=== PATIENT | female | born 1965 | race Caucasian/White ===

== ENCOUNTER 2021-01-18 08:28 | Outpatient (RCR) | payer OTHER, SELFPAY | END 2021-02-22 23:59 | LOC: IMMUN 08:28 | PROVIDERS: Visit Provider Family Medicine | DX: Z23 Encounter for immunization (principal) | CPT/HCPCS: 0001A; 0002A; 91300 ==

== ENCOUNTER → 2022-06-26 | Outpatient (CLI) | payer OTHER, SELFPAY ==
[2022-06-28 20:07] LABS: QNTFERON TB Mitogen Value > 10.00 IU/mL (.); QNTFERON TB Nil Value 0.22 IU/mL (.); QNTFERON TB1+ Ag Value 0.02 IU/mL (.); QNTFERON TB2+ Ag Value 0.02 IU/mL (.)
[2022-06-29 15:48] LABS: QNTIFERON TB Positive Criteria Negative (Negative)
== END | disposition home or self-care (01) ==
PROVIDERS: PCP Family Medicine; Referring Provider Dermatology; Visit Provider Dermatology
DX: L40.0 Psoriasis vulgaris (principal); Z79.899 Other long term (current) drug therapy
CPT/HCPCS: 36415; 86480

== ENCOUNTER 2023-12-24 08:40 | Inpatient (IN) | payer OTHER, SELFPAY ==
[2023-12-24] VITALS (13 sets, daily range): BP systolic 121–150; BP diastolic 55–73; PULSE 95–108; RESP 12–26; TEMP 36.3–37.5; O2SAT 94–100; BMI 26.9; BMI 27.5
--- NOTE | 2023-12-24 09:08 | EDS_ITS ---
HPI History of Present Illness Chief Complaint: Cold Sx Informant: patient Onset/Context/Timing Onset: Days (4) Context: Sudden Onset Timing: Continuous Quality: Fatigue, short of breath Location: Generalized Worsened by: Exertion Relieved by: Rest Narrative Narrative: Patient presents with shortness of breath and fatigue that has been getting worse over the past 4 days. Patient states that she started having some cold symptoms 6 days ago but starting having some shortness of breath with exertion 4 days ago. Patient states she feels fatigued. Patient states her breathing is worse with any exertion. Patient states she can only walk approximately 10 feet before she gets out of breath and has to stop and rest. Patient admits to decreased appetite. Patient mitts to some nausea and vomiting. Patient admits to a low-grade fever of 100.3 at home. [facility] Medical History Diabetes Psoriasis Home Medications blood sugar diagnostic (FreeStyle Lite Strips) 12/24/23 [History Last Taken Unknown] deucravacitinib 6 mg tablet (Sotyktu) 6 mg PO DAILY 12/24/23 [History Last Taken 12/18/23] empagliflozin 25 mg tablet (Jardiance) 25 mg PO DAILY 12/24/23 [History Last Taken 12/23/23] metformin 500 mg tablet 1,000 mg PO BID 12/24/23 [History Last Taken 12/23/23] Allergy/AdvReac Type Severity Reaction Status Date / Time Penicillins Allergy PT UNSURE Verified 12/24/23 08:43 OF REACTION Surgical History no surgical history Social History Smoking Status: Never smoker ROS ROS ED Constitutional Constitutional ED: Reports fever(s); Denies chills Eyes Eyes: Denies blurry vision or change in vision ENT ENT ED: Denies rhinorrhea or sore throat Cardiovascular Cardiovascular: Reports chest pain; Denies palpitations Respiratory/Chest Respiratory/Chest: Reports dyspnea and dyspnea on exertion; Denies cough Gastrointestinal Gastrointestinal: Reports nausea and vomiting Genitourinary Genitourinary ED: Denies dysuria or hematuria Musculoskeletal Musculoskeletal: Denies back pain or neck pain Integumentary Denies abscess or rash Neurologic Neurologic: Reports headache(s); Denies weakness Allergic/Immunologic Allergic/Immunologic ED: Denies mouth swelling or urticaria EXAM Physical Exam Const Vital Signs: 12/24/23 08:41 12/24/23 08:52 12/24/23 08:52 Temperature 97.4 F L Temperature Source Temporal Pulse Rate 103 H Respiratory Rate 20 H Respiratory Effort Short of Breath Labored Short of Breath Labored Respiratory Depth Deep Respiratory Pattern Tachypnea Tachypnea Blood Pressure 150/68 H Blood Pressure Mean 95 Pulse Ox 100 Oxygen Delivery Method Room Air Room Air 12/24/23 09:26 12/24/23 10:41 12/24/23 12:00 Temperature Temperature Source Pulse Rate 99 99 Respiratory Rate 26 H 25 H Respiratory Effort Respiratory Depth Respiratory Pattern Blood Pressure 147/55 H 123/73 H Blood Pressure Mean 85 89 Pulse Ox 98 98 99 Oxygen Delivery Method Room Air Room Air Room Air Positive well nourished and well developed General Appearance ED: well developed and NAD HEENT Reports moist mucous membranes Neck supple and no JVD Resp normal respiratory effort and clear to auscultation bilaterally Cardio regular rhythm Rate: tachycardic GI non-tender and non-distended Palpation: soft Extremity normal to inspection General Extremety ED: Negative for edema or tenderness General Extremity: Negative for edema Neuro oriented x3, CN's II-XII intact bilaterally and no sensory deficits noted Sensorium / Orientation: alert Motor Exam: strength 5/5 throughout MDM MDM MDM Narrative Medical decision making narrative: Differential diagnosis includes congestive heart failure, cardiac dysrhythmia, cardiac ischemia, pulmonary embolism, viral illness, DKA, and electrolyte abnormality. EKG will be obtained to assess for cardiac dysrhythmia and cardiac ischemia. Chest x-ray will be obtained to assess for pneumonia and congestive heart failure. CBC will be obtained to assess for leukocytosis and anemia. Bas ic metabolic profile will be obtained to assess for electrolyte abnormality and renal function. D-dimer will be obtained to assess for pulmonary embolism. High-sensitivity troponin will be obtained to assess for cardiac ischemia. COVID-19, influenza, and RSV PCR will be obtained to assess for viral illness. Lab Data Attestation: I reviewed the patient's lab results. Lab results narrative: CBC was reviewed. There is a leukocytosis of 16.4. Hemoglobin was slightly elevated at 16.5 and hematocrit was 48.4. Platelets were normal. PT with INR and PTT were reviewed. Pro time was 15.2 and INR is 1.2. PTT was 26.3. D- dimer was reviewed and was elevated at 1.62. Basic metabolic profile was r eviewed. Sodium was low at 123. Glucose was elevated at 263. BUN was slightly elevated at 31 and creatinine was 1.08. Anion gap was elevated at 19 and CO2 was low at 5.0. Serum lactate was reviewed and was normal at 1.8. High- sensitivity troponin was reviewed and was normal at 4. BNP was reviewed and was normal at 49. Urinalysis was reviewed. Urine ketones were 150. Urine glucose was 1000. Occult blood was 150. There are 0-5 red blood cells and 0-5 white blood cells noted. Serum acetone level was reviewed and was moderate. COVID-19 PCR was reviewed and was negative. Influenza PCR was reviewed and was negative for influenza A and influenza B. RSV PCR was reviewed and was negative. Labs: Laboratory Results - last 24 hr 12/24/23 12/24/23 12/24/23 09:45 10:35 11:24 WBC 16.4 H RBC 5.12 Hgb 16.5 H Hct 48.4 H MCV 94.5 MCH 32.2 H MCHC 34.1 RDW Std Deviation 44.2 H RDW Coeff of Amie 12.5 Plt Count 296 MPV 10.2 Immature Gran % (Auto) 1.500 H Neut % (Auto) 80.7 H Lymph % (Auto) 12.5 L [place] % (Auto) 4.9 Eos % (Auto) 0.1 Baso % (Auto) 0.3 Absolute Neuts (auto) 13.2 H Absolute Lymphs (auto) 2.05 Nucleated RBC % 0 PT 15.2 H INR 1.2 APTT 26.3 D-Dimer Quant (PE/DVT) 1.62 H* Sodium 123 L Potassium 5.0 Chloride 99 Carbon Dioxide 5.0 L* Anion Gap 19 H BUN 31 H Creatinine 1.08 H Estim Creat Clear Calc 50.86 Est GFR (MDRD) Af Amer 67 Est GFR (MDRD) Non-Af 55 L BUN/Creatinine Ratio 28.7 H Glucose 263 H Lactic Acid 1.8 Calcium 8.8 Troponin I High Sens 4 B-Natriuretic Peptide 49.0 Urine Color Yellow Urine Clarity Sl. Cloudy Urine pH 5.0 Ur Specific [place] 1.020 Urine Protein 100 H Urine Glucose (UA) 1000 H Urine Ketones 150 A* Urine Occult Blood 150 H Urine Nitrite Negative Urine Bilirubin Negative Urine Urobilinogen Normal Ur Leukocyte Esterase Negative Urine RBC 0-5 SEEN Urine WBC 0-5 SEEN Ur Squamous Epith Cells 0-5 SEEN Urine Bacteria 1+ Urine Mucus 0 SEEN Acetone Level MODERATE H ABG Data ABG results: ABG 12/24/23 11:43 Specimen Type RUDY Sample Site Not entered O2 % 21.0 VBG pH 6.94 L* VBG pO2 52 H VBG Total CO2 < 5 L VBG O2 Sat (Calc) 65 VBG Base Excess -29 L POC Mix VBG pCO2 Pt Tmp 16.2 L* O2 Delivery Device Not entered Crit Call To/Read Back Yes Radiography Chest X-Ray - ED: 2 View, Read by ED Physician, Read by Radiologist and No Acute Disease Diagnostic Testing: Clinical Impression(s) from Imaging Studies Chest X-Ray 12/24/23 09:34 IMPRESSION: No acute abnormality is seen. Electronically Signed: Delfin Mathew MD at 9:45 EDT , PA and lateral chest x-ray was obtained. There are 2 views. On my independent interpretation, lung david are clear. There is normal cardiac silhouette. Bony thorax is normal. There is no acute process noted. Radiologist also interpreted the x-ray and agrees. Because of the elevated D-dimer, CTA of the chest was obtained. There are nonocclusive filling defects in the branches of the right and left lower lobes. This was interpreted by the radiologist was also independently reviewed by myself. EKG Initial EKG: Attestation: I personally reviewed and interpreted this EKG as follows: Interpretation: Sinus Rhythm (100) and No Acute Injury Pattern Comments: EKG was obtained. On my independent interpretation, it showed a normal sinus rhythm with a rate of 100. WI interval, QRS interval, and QTc intervals were all normal. [place] was normal. There are no acute ST or T wave ch anges. Prior EKG tracings: not available for review Prior: No Prior Additional Tests and Interventions Additional Tests or Interventions: Because of the low CO2 and elevated anion gap, serum acetone was added on. Because of the elevated D-dimer, CTA of the chest was obtained. Treatment and Re-Evaluation :: Patient was given IV fluids. Patient was started on insulin drip. Patient was given a dose of sodium bicarbonate. Patient was also started on Eliquis. Case was discussed with the hospitalist. He will admit the patient to his service. Patient understood and was agreeable with the plan. All questions were answered. Critical Care Time Critical Care Time: Yes Critical care time (excluding procedures): 30-74 minutes (37), Including time spent:, Discussing w/Patient &/or Family/Student Development Specialist, Discussing w/Consultants, Arranging Admission or Transfer and Performing Direct Patient Care at Bedside Discharge Plan Dx/Rx/DC Orders Clinical Impression: Diabetic ketoacidosis, Dyspnea on exertion, Pulmonary emboli, Acute hyponatremia Disposition Disposition: Acute Care Hospital [facility]
--- NOTE | 2023-12-24 09:25 | EKG12_ITS ---
Test Reason : SOB Blood Pressure : / mmHG Vent. Rate : 100 BPM Atrial Rate : 100 BPM P-R Int : 138 ms QRS Dur : 094 ms QT Int : 346 ms P-R-T Axes : 002 002 026 degrees QTc Int : 446 ms Normal sinus rhythm Incomplete right bundle branch block Borderline ECG Confirmed by GIRMA GLORIA, GONZÁLEZ ([id number]), editor school photograph JAMMIE SÁNCHEZ ([id number]) on 12/25/2023 11:32:08 AM Referred By: ES/ Confirmed By:GONZÁLEZ RAYO MD
--- NOTE | 2023-12-24 09:33 | ED.RN ---
NO OLD EKG
--- NOTE | 2023-12-24 09:34 | RAD_ITS ---
STUDY: X-RAY CHEST REASON FOR EXAM: Female, 58 years old. Dyspnea TECHNIQUE: PA and lateral views of the chest. COMPARISON: None. FINDINGS: EKG electrodes are seen. The lungs are clear and expanded. There is no demonstrated pleural abnormality. Normal size heart. Normal mediastinum and ruthy. Normal visualized pulmonary arteries. Normal visualized aortic arch and descending thoracic aorta. There are diffuse degenerative changes of the visualized thoracic spine. Normal visualized ribs, clavicles, and shoulders. There is no demonstrated abnormality of the visualized soft tissue structures of the upper abdomen. RAD/Chest PA and Lateral IMPRESSION: No acute abnormality is seen. Electronically Signed: Delfin Mathew MD at 9:45 EDT ,
[2023-12-24 10:00] LABS: Absolute Lymphocyte Count 2.05 X10^3/uL (0.83-4.51); Absolute Neutrophil Count 13.2 X10^3/uL (2.0-7.7); Basophil# 0.05 X10^3/uL; Basophil% 0.3 % (0-1); Eosinophil# 0.02 X10^3/uL; Eosinophils% 0.1 % (0-5); Hematocrit 48.4 % (37-47); Hemoglobin 16.5 g/dL (12.0-15.0); Lymphocyte # 2.05 X10^3/ul (0.83-4.51); Lymphocyte % 12.5 % (19-41); Mean Corp Hgb Conc 34.1 g/dL (32-36); Mean Corpuscular Hgb 32.2 pg (27.0-32.0); Mean Corpuscular Volume 94.5 fL (81-99); Mean Platelet Vol. 10.2 fl (6.2-12.0); Monocyte# 0.81 X10^3/uL; Monocyte% 4.9 % (0-10); NRBC Flagged by Analyzer 0 % (0-5); Neutrophil # 13.22 X10^3/uL (2.7-7.7); Neutrophil % 80.7 % (47-70); Platelet Count 296 K/mm3 (150-450); RBC Distribution Width CV 12.5 % (11.6-14.6); RBC Distribution Width SD 44.2 fl (35.1-43.9); Red Blood Count 5.12 M/mm3 (4.2-5.4); White Blood Count 16.4 K/mm3 (4.4-11.0)
[2023-12-24 10:12] LABS: International Normalized Ratio 1.2; Partial Thromboplast Time 26.3 Seconds (24.1-36.2); Prothrombin Time (Protime)PT. 15.2 SECONDS (11.7-14.9)
[2023-12-24 10:27] LABS: D-Dimer Quantitative (DVT/PE) 1.62 FEU/ug/m (0.27-0.49)
--- NOTE | 2023-12-24 10:27 | CT_ITS ---
STUDY: CTA CHEST REASON FOR EXAM: Female, 58 years old. Elevated D-dimer RADIATION DOSAGE (If Supplied By Facility): CTDIvol = ( 8.94 ) mGy, DLP = ( 319.91 ) mGycm TECHNIQUE: The examination was performed with the intravenous administration of IV 75mL Isovue-370. Post-processing of the angiographic images was performed, with multiplanar reformation and 3D reconstruction. Individualized dose optimization techniques were used for this CT. COMPARISON: Comparison is made with prior chest radiograph done earlier in the day. FINDINGS: Nonocclusive intraluminal filling defects are seen in branches of the right lower lobe pulmonary artery in keeping with pulmonary emboli. Small intraluminal filling defects also seen in small branches of the left lower lobe pulmonary artery. Normal thoracic aorta and visualized great vessels. There is no demonstrated aortic dissection. There are calcifications of the coronary arteries. Normal mediastinum. Normal hilar regions. Normal visualized trachea and bronchi. The lungs are well expanded. Normal pulmonary parenchyma. Normal pleura. Normal chest wall structures. There are degenerative changes of thoracic spine. Fatty infiltration of the liver. Distended gallbladder. CT/CTA Chest W/WO Contrast IMPRESSION: Nonocclusive filling defects in branches of both the right and left lower lobe pulmonary artery in keeping with pulmonary emboli. Electronically Signed: Delfin Mathew MD at 11:57 EDT ,
[2023-12-24 10:35] LABS: Anion Gap 19 (5-15); BUN 31 mg/dL (7-18); BUN/Creat Ratio 28.7 RATIO (10-20); Calcium,Total 8.8 mg/dL (8.5-10.1); Chloride 99 mmol/L (98-107); Creatinine, Serum 1.08 mg/dL (0.55-1.02); EST Glomerular Filtration Rate 55 mL/min (>60); Est Glom Filt Rate - Afr Amer 67 mL/min (>60); Estimated Creatinine Clearance 50.86 ml/min; Glucose 263 mg/dL (74-106); Sodium Level 123 mmol/L (136-145); Troponin-I HS 4 pg/mL (3.0-54.0)
[2023-12-24 10:41] LABS: Mucous, Urine 0 SEEN /hpf (<or=2+)
[2023-12-24 10:42] LABS: Color, Urine Yellow (Yellow); Glucose, Dipstick 1000 mg/dl (Normal); Leukocyte Esterase-Dipstick Negative /ul (Negative); Nitrite-Dipstick Negative (Negative); Occult Blood-Urine 150 /ul (Negative); Protein-Dipstick 100 mg/dl (Negative); Urine Bilirubin Dipstick Negative (Negative); Urine Clarity Sl. Cloudy (Clear); Urine Urobilinogen Normal (Normal)
[2023-12-24 10:43] LABS: Ketone-Dipstick 150 mg/dl (Negative)
[2023-12-24 10:55] LABS: Bacteria 1+ /hpf (None Seen); Red Blood Cells-Urine 0-5 SEEN /hpf (0-5); Squamous Epithelial Cells - UA 0-5 SEEN /hpf (5-10); White Blood Cells 0-5 SEEN /hpf (0-5)
[2023-12-24 10:58] LABS: Lactic Acid 1.8 mmol/L (0.4-1.9)
--- NOTE | 2023-12-24 11:43 | CPS ---
Critical values verified times two. Hand delivered results to DR. Perez. Verified by read back.
[2023-12-24 11:47] LABS: Blood Gas Specimen Type VEN; O2 Delivery Device Not entered; SITE Not entered; VBG BASE EXCESS -29 mmol/L (-1.0-3.5); VBG PO2 52 mmHg (25-40); VBG SO2 65 % (50-70); VBG TCO2 < 5 mmol/L (23-33); VBG pCO2 16.2 mmHg (41-51); VBG pH 6.94 (7.32-7.42)
--- NOTE | 2023-12-24 12:29 | PCM.HP.STD ---
HPI - General General Date of Admission: 12/24/23 Date of Service: 12/24/23 Chief Complaint: Shortness of breath HPI Narrative JOCELIN CONNER, is a 58 F with past medical history significant for mellitus type II, psoriasis who presented with shortness of breath. Patient symptoms started 4 days prior to her admission. Patient has noticed increasing dyspnea with minimal exertion. She also did experience profound weakness and was barely able to ambulate. She did experience nausea and persistent vomiting over the past 4 days. In view of worsening symptoms patient presented to the emergency department patient was found to be in DKA. Was also found to have severe acidosis did receive bicarb in the ED. CTA demonstrated bilateral pulmonary embolism patient started on apixaban and admitted to the intensive care unit for further management [facility] Medical History Diabetes Psoriasis Home Medications blood sugar diagnostic (FreeStyle Lite Strips) 12/24/23 [History Last Taken Unknown] deucravacitinib 6 mg tablet (Sotyktu) 6 mg PO DAILY 12/24/23 [History Last Taken 12/18/23] empagliflozin 25 mg tablet (Jardiance) 25 mg PO DAILY 12/24/23 [History Last Taken 12/23/23] metformin 500 mg tablet 1,000 mg PO BID 12/24/23 [History Last Taken 12/23/23] Allergy/AdvReac Type Severity Reaction Status Date / Time Penicillins Allergy PT UNSURE Verified 12/24/23 08:43 OF REACTION Surgical History no surgical history Social History Smoking Status: Never smoker ROS ROS Narrative GENERAL: Fatigue, anorexia HEENT: denies headache, sinus congestion, or drainage, dysphagia RESPIRATORY: shortness of breath, dyspnea on exertion CARDIAC: denies chest pain, palpitations, orthopnea, PND GASTROINTESTINAL: d, nausea, vomiting, GENITOURINARY: denies dysuria, urgency, frequency, EXTREMITY: denies swelling MUSCULOSKELETAL: denies current joint pain or tenderness NEUROLOGIC: denies focal numbness, weakness, tingling HEMATOLOGIC: denies easy bruising and/or hemorrhage INTEGUMENT: denies rashes PSYCHIATRIC: denies suicidal or homicidal ideation Vital Signs Vital Signs Vital Signs: 12/24/23 08:41 12/24/23 08:52 12/24/23 08:52 Temperature 97.4 F L Temperature Source Temporal Pulse Rate 103 H Respiratory Rate 20 H Respiratory Effort Short of Breath Labored Short of Breath Labored Respiratory Depth Deep Respiratory Pattern Tachypnea Tachypnea Blood Pressure 150/68 H Blood Pressure Mean 95 Pulse Ox 100 Oxygen Delivery Method Room Air Room Air 12/24/23 09:26 12/24/23 10:41 Temperature Temperature Source Pulse Rate 99 Respiratory Rate 26 H Respiratory Effort Respiratory Depth Respiratory Pattern Blood Pressure 147/55 H Blood Pressure Mean 85 Pulse Ox 98 98 Oxygen Delivery Method Room Air Room Air Weight Weight: 66.7 kg Body Mass Index (BMI) 26.9 Physical Exam Narrative GENERAL: cooperative but frail looking HEENT: Atraumatic; normocephalic EYES; Anicteric, Normal Conjunctiva NECK; supple, normal thyroid, RESPIRATORY: Diminished to auscultation CARDIOVASCULAR: Regular S1 S2, GI: soft, normoactive bowel sounds, : No Renal angle tenderness; EXTREMITIES: No edema, no clubbing, MUSCULOSKELETAL: no muscle wasting NEURO: Awake; no lateralizing signs. SKIN: No Rash PSYCH; Flat affect Results Lab / Micro Data 12/24/23 09:45 12/24/23 14:45 Labs: Laboratory Results - last 24 hr 12/24/23 09:45: WBC 16.4 H, RBC 5.12, Hgb 16.5 H, Hct 48.4 H, MCV 94.5, MCH 32.2 H, MCHC 34.1, RDW Std Deviation 44.2 H, RDW Coeff of Amie 12.5, Plt Count 296, MPV 10.2, Immature Gran % (Auto) 1.500 H, Neut % (Auto) 80.7 H, Lymph % (Auto) 12.5 L, [place] % (Auto) 4.9, Eos % (Auto) 0.1, Baso % (Auto) 0.3, Absolute Neuts (auto) 13.2 H, Absolute Lymphs (auto) 2.05, Nucleated RBC % 0, PT 15.2 H, INR 1.2, APTT 26.3, D-Dimer Quant (PE/DVT) 1.62 H*, Sodium 123 L, Potassium 5.0, Chloride 99, Carbon Dioxide 5.0 L*, Anion Gap 19 H, BUN 31 H, Creatinine 1.08 H, Estim Creat Clear Calc 50.86, Est GFR (MDRD) Af Amer 67, Est GFR (MDRD) Non-Af 55 L, BUN/Creatinine Ratio 28.7 H, Glucose 263 H, Lactic Acid 1.8, Calcium 8.8, Troponin I High Sens 4, B-Natriuretic Peptide 49.0 12/24/23 10:35: Urine Color Yellow, Urine Clarity Sl. Cloudy, Urine pH 5.0, Ur Specific [place] 1.020, Urine Protein 100 H, Urine Glucose (UA) 1000 H, Urine Ketones 150 A*, Urine Occult Blood 150 H, Urine Nitrite Negative, Urine Bilirubin Negative, Urine Urobilinogen Normal, Ur Leukocyte Esterase Negative, Urine RBC 0-5 SEEN, Urine WBC 0-5 SEEN, Ur Squamous Epith Cells 0-5 SEEN, Urine Bacteria 1+, Urine Mucus 0 SEEN 12/24/23 11:24: Acetone Level MODERATE H Micro: Microbiology 12/24/23 09:45 Mucosa - Nose SARS-CoV-2, Influenza & RSV (PCR) - Final ABG Data ABG results: ABG 12/24/23 11:43 Specimen Type RUDY Sample Site Not entered O2 % 21.0 VBG pH 6.94 L* VBG pO2 52 H VBG Total CO2 < 5 L VBG O2 Sat (Calc) 65 VBG Base Excess -29 L POC Mix VBG pCO2 Pt Tmp 16.2 L* O2 Delivery Device Not entered Crit Call To/Read Back Yes Imaging Radiology Impression Chest X-Ray 12/24/23 09:34 IMPRESSION: No acute abnormality is seen. Electronically Signed: Delfin Mathew MD at 9:45 EDT , Assessment & Plan Assessment/Plan (1) Acute hyponatremia: (2) Pulmonary emboli: QUALIFIERS: Pulmonary embolism type: multiple subsegmental (without acute cor pulmonale) Qualified Code(s): I26.94 - Multiple subsegmental pulmonary emboli without acute cor pulmonale (3) Diabetic ketoacidosis: QUALIFIERS: Diabetes mellitus complication detail: without coma Diabetes mellitus type: type 2 Qualified Code(s): E11.10 - Type 2 diabetes mellitus with ketoacidosis without coma PLAN: Plan Patient is a 58-year-old lady presented with progressive shortness of breath diagnosed with diabetic ketoacidosis as well as bilateral pulmonary embolism admitted to the intensive care unit for further management 1. Diabetic ketoacidosis ? Admitted to the intensive care unit management initiated with IV fluid resuscitation, IV insulin, BMP every 4 monitoring of electrolyte and correction of electrolyte abnormalities 2. Severe acidosis ? Secondary to DKA patient did receive bicarb in the emergency department. Do expect correction with treatment of her underlying DKA 3. Severe hyponatremia ? Secondary to DKA sodium levels being monitored with every 4 BMP 5. Mild hyperkalemia ? Secondary to DKA do expect improvement with treatment of the DKA 5. Acute bilateral pulmonary embolism ? Unprovoked patient was started on apixaban from the emergency department did continue. Echo ordered for RV function assessment. 6. Leukocytosis ? Most likely reactive no evidence of active infection for now 7. Psoriasis ? Patient remains on remission. Patient is on deucravacitinib Critical time spent in the patient's overall evaluation,decision-making process, review of diagnostic data, adjustment of management, discussion with other providers, nursing nursing and ancillary staff involved in patient's care documentation, 80 Minutes Advance planning; did discuss with the patient and family regarding advanced directives as well as CODE STATUS. Did explain the various scenarios involved ( FULL CODE, DNR CCA, DNR CCA with no intubation, and DNR CC and what each meant) patient elected to remain full code with CPR. Order was placed. Time spent on discussion 18 minutes. Charges/Coding Procedures Hospitalists Procedures: 27597 Advncd Care Plan 30 Min Multi Select Codes Hospitalists' Procedures Procedures: 94370 Critical Care 1st Hr and [address]38 Critical Care Addl 30 Min
[2023-12-24] MEDS: Sodium Bicarbonate 8.4% 50 ML Syringe 50 MEQ IV (12:35)
[2023-12-24] MEDS: Insulin Lispro 100 UNIT in 0.9% Normal Saline (100mL Bag) 99 ML 6.7 UNIT CONT INF (12:40)
[2023-12-24] MEDS: 0.9% Normal Saline (1000mL) 1,000 ML 1000 ML IV (12:50)
[2023-12-24] MEDS: APIXABAN 5 MG TABLET 10 MG PO ×2 (12:50→21:15)
[2023-12-24 13:01] LABS: Bedside Glucose 228 mg/dL (74-106)
--- NOTE | 2023-12-24 13:44 | NURSING ---
12/24/23@ 1340- REPORT CALLED TO COURTNEY CID.
[2023-12-24 13:56] LABS: Bedside Glucose 168 mg/dL (74-106)
[2023-12-24] MEDS: 0.9% Normal Saline (1000mL) 1,000 ML 999 ML IV (14:55)
[2023-12-24 15:04] LABS: Bedside Glucose 101 mg/dL (74-106)
[2023-12-24 15:12] LABS: Anion Gap 18 (5-15); BUN 27 mg/dL (7-18); BUN/Creat Ratio 32.7 RATIO (10-20); Chloride 109 mmol/L (98-107); Creatinine, Serum 0.83 mg/dL (0.55-1.02); EST Glomerular Filtration Rate 75 mL/min (>60); Est Glom Filt Rate - Afr Amer 91 mL/min (>60); Estimated Creatinine Clearance 66.89 ml/min; Glucose 106 mg/dL (74-106); Potassium 3.2 mmol/L (3.5-5.1); Sodium Level 132 mmol/L (136-145)
[2023-12-24] MEDS: Dext 5%-0.45% NS 1,000 ML 150 ML IV (15:14)
[2023-12-24] MEDS: 0.9% Normal Saline (1000mL) 1,000 ML 500 ML IV (16:22)
[2023-12-24 17:01] LABS: Bedside Glucose 94 mg/dL (74-106)
[2023-12-24] MEDS: Sodium Bicarbonate 50 MEQ in Dextrose 5%-Water (1000mL Bag) 1,000 ML 100 MEQ IV (17:02)
[2023-12-24 17:04] LABS: Bedside Glucose 90 mg/dL (74-106)
[2023-12-24 18:00] LABS: Bedside Glucose 92 mg/dL (74-106)
[2023-12-24 18:28] LABS: VBG Bicarbonate 4 mmol/L (22-26)
[2023-12-24 19:38] LABS: Bedside Glucose 96 mg/dL (74-106)
[2023-12-24 20:07] LABS: Anion Gap 11 (5-15); BUN 22 mg/dL (7-18); BUN/Creat Ratio 33.1 RATIO (10-20); Calcium,Total 7.7 mg/dL (8.5-10.1); Chloride 112 mmol/L (98-107); Creatinine, Serum 0.66 mg/dL (0.55-1.02); EST Glomerular Filtration Rate 97 mL/min (>60); Est Glom Filt Rate - Afr Amer 117 mL/min (>60); Estimated Creatinine Clearance 84.12 ml/min; Glucose 116 mg/dL (74-106); Sodium Level 133 mmol/L (136-145)
[2023-12-24 20:36] LABS: Bedside Glucose 105 mg/dL (74-106)
[2023-12-24] MEDS: Acetaminophen 325 MG Tablet 650 MG PO (21:17)
[2023-12-24] MEDS: BENZOCAINE/MENTHOL 1 LOZENGE 2 LOZENGE MUCOUS MEM (22:22)
[2023-12-24] MEDS: KCL 20MEQ in D5.45NS 20 MEQ/1,000 ML IV.SOLN. 150 MEQ IV (22:22)
[2023-12-24 22:37] LABS: Bedside Glucose 114 mg/dL (74-106)
[2023-12-24 23:44] LABS: Anion Gap 10 (5-15); BUN 18 mg/dL (7-18); BUN/Creat Ratio 26.8 RATIO (10-20); Calcium,Total 7.7 mg/dL (8.5-10.1); Chloride 112 mmol/L (98-107); Creatinine, Serum 0.67 mg/dL (0.55-1.02); EST Glomerular Filtration Rate 95 mL/min (>60); Est Glom Filt Rate - Afr Amer 116 mL/min (>60); Estimated Creatinine Clearance 82.86 ml/min; Glucose 107 mg/dL (74-106); Potassium 2.6 mmol/L (3.5-5.1); Sodium Level 134 mmol/L (136-145)
[2023-12-25] VITALS (15 sets, daily range): BP systolic 104–143; BP diastolic 56–83; PULSE 85–105; RESP 16–29; TEMP 36.6–37.1; O2SAT 94–100; BMI 27.4
[2023-12-25] MEDS: Potassium Chloride 10mEq/100mL 10 MEQ/100 ML IV.SOLN. 100 MEQ IV BOLUS ×8 (00:36→13:24)
[2023-12-25 00:37] LABS: Bedside Glucose 112 mg/dL (74-106)
[2023-12-25 00:37] LABS: Bedside Glucose 105 mg/dL (74-106)
[2023-12-25 01:31] LABS: Bedside Glucose 104 mg/dL (74-106)
[2023-12-25] MEDS: Sodium Bicarbonate 50 MEQ in Dextrose 5%-Water (1000mL Bag) 1,000 ML 100 MEQ IV (03:18)
[2023-12-25 03:42] LABS: Absolute Lymphocyte Count 1.34 X10^3/uL (0.83-4.51); Absolute Neutrophil Count 4.3 X10^3/uL (2.0-7.7); Basophil# 0.01 X10^3/uL; Basophil% 0.2 % (0-1); Hematocrit 34.2 % (37-47); Hemoglobin 12.2 g/dL (12.0-15.0); Lymphocyte # 1.34 X10^3/ul (0.83-4.51); Lymphocyte % 22.1 % (19-41); Mean Corp Hgb Conc 35.7 g/dL (32-36); Mean Corpuscular Hgb 31.6 pg (27.0-32.0); Mean Corpuscular Volume 88.6 fL (81-99); Mean Platelet Vol. 9.5 fl (6.2-12.0); Monocyte# 0.43 X10^3/uL; Monocyte% 7.1 % (0-10); NRBC Flagged by Analyzer 0 % (0-5); Neutrophil # 4.27 X10^3/uL (2.7-7.7); Neutrophil % 70.4 % (47-70); Platelet Count 159 K/mm3 (150-450); RBC Distribution Width CV 12.4 % (11.6-14.6); Red Blood Count 3.86 M/mm3 (4.2-5.4); White Blood Count 6.1 K/mm3 (4.4-11.0)
[2023-12-25 04:02] LABS: ALB/GLOB Ratio 0.8 RATIO (0.9-2.4); AST(SGOT) 14 U/L (15-37); Alanine Aminotransfer ALT/SGPT 12 U/L (13-56); Albumin, Serum 2.7 g/dL (3.2-5.0); Alkaline Phosphatase 65 U/L (45-117); Anion Gap 7 (5-15); BUN 14 mg/dL (7-18); BUN/Creat Ratio 23.3 RATIO (10-20); Chloride 114 mmol/L (98-107); EST Glomerular Filtration Rate 109 mL/min (>60); Est Glom Filt Rate - Afr Amer 131 mL/min (>60); Estimated Creatinine Clearance 92.53 ml/min; Globulin 3.2 g/dL (2.2-4.2); Glucose 102 mg/dL (74-106); Potassium 2.8 mmol/L (3.5-5.1); Protein, Total 5.9 g/dL (6.4-8.2); Sodium Level 135 mmol/L (136-145)
[2023-12-25 04:32] LABS: Bedside Glucose 101 mg/dL (74-106)
[2023-12-25 04:32] LABS: Bedside Glucose 107 mg/dL (74-106)
[2023-12-25 04:32] LABS: Bedside Glucose 113 mg/dL (74-106)
[2023-12-25 04:32] LABS: Bedside Glucose 101 mg/dL (74-106)
[2023-12-25] MEDS: KCL 20MEQ in D5.45NS 20 MEQ/1,000 ML IV.SOLN. 150 MEQ IV ×2 (05:03→13:24)
[2023-12-25 06:31] LABS: Bedside Glucose 88 mg/dL (74-106)
[2023-12-25 06:33] LABS: Bedside Glucose 71 mg/dL (74-106)
[2023-12-25 07:34] LABS: Anion Gap 13 (5-15); BUN 11 mg/dL (7-18); BUN/Creat Ratio 21.7 RATIO (10-20); Calcium,Total 8.2 mg/dL (8.5-10.1); Chloride 110 mmol/L (98-107); Creatinine, Serum 0.51 mg/dL (0.55-1.02); EST Glomerular Filtration Rate 132 mL/min (>60); Est Glom Filt Rate - Afr Amer 160 mL/min (>60); Estimated Creatinine Clearance 108.75 ml/min; Glucose 117 mg/dL (74-106); Potassium 2.8 mmol/L (3.5-5.1); Sodium Level 138 mmol/L (136-145)
[2023-12-25 07:45] LABS: Bedside Glucose 105 mg/dL (74-106)
[2023-12-25] MEDS: APIXABAN 5 MG TABLET 10 MG PO ×2 (08:06→21:25)
[2023-12-25 08:25] LABS: Bedside Glucose 97 mg/dL (74-106)
--- NOTE | 2023-12-25 08:39 | PN.HOSP_ITS ---
Reason for Visit Reason for Visit: Diagnoses Type 2 diabetes mellitus with ketoacidosis without coma (12/24/23) Hypo-osmolality and hyponatremia (12/24/23) Multiple subsegmental pulmonary emboli without acute cor pulmonale (12/24/23) Subjective Subjective Patient is a 58-year-old lady admitted with exertional dyspnea found to have pulmonary embolism and was also found to be in DKA with severe acidosis admitted to the intensive care unit where patient has since been managed Objective Data Objective Data Vital Signs: Vital Signs Temp Pulse Resp BP Pulse Ox O2 Del Method 98.1 F 85 16 116/64 98 Room Air 12/25/23 08:00 12/25/23 08:00 12/25/23 08:00 12/25/23 08:00 12/25/23 08:00 12/25/23 08:19 Oxygen Delivery Method Room Air Weight: 68.084 kg Body Mass Index (BMI) 27.4 Intake & Output: Intake and Output for Last 24 Hours 12/23/23 12/24/23 12/25/23 23:59 23:59 23:59 Intake Total 3379.93 / 3429.93 3226.91 / 3226.91 Balance 3379.93 / 3429.93 3226.91 / 3226.91 Lab / Micro Data 12/25/23 03:15 12/25/23 07:15 Labs: Laboratory Results - last 24 hr 12/24/23 09:45: WBC 16.4 H, RBC 5.12, Hgb 16.5 H, Hct 48.4 H, MCV 94.5, MCH 32.2 H, MCHC 34.1, RDW Std Deviation 44.2 H, RDW Coeff of Amie 12.5, Plt Count 296, MPV 10.2, Immature Gran % (Auto) 1.500 H, Neut % (Auto) 80.7 H, Lymph % (Auto) 12.5 L, [place] % (Auto) 4.9, Eos % (Auto) 0.1, Baso % (Auto) 0.3, Absolute Neuts (auto) 13.2 H, Absolute Lymphs (auto) 2.05, Nucleated RBC % 0, PT 15.2 H, INR 1.2, APTT 26.3, D-Dimer Quant (PE/DVT) 1.62 H*, Sodium 123 L, Potassium 5.0, Chloride 99, Carbon Dioxide 5.0 L*, Anion Gap 19 H, BUN 31 H, Creatinine 1.08 H, Estim Creat Clear Calc 50.86, Est GFR (MDRD) Af Amer 67, Est GFR (MDRD) Non-Af 55 L, BUN/Creatinine Ratio 28.7 H, Glucose 263 H, Lactic Acid 1.8, Calcium 8.8, Troponin I High Sens 4, B-Natriuretic Peptide 49.0 12/24/23 10:35: Urine Color Yellow, Urine Clarity Sl. Cloudy, Urine pH 5.0, Ur Specific [place] 1.020, Urine Protein 100 H, Urine Glucose (UA) 1000 H, Urine Ketones 150 A*, Urine Occult Blood 150 H, Urine Nitrite Negative, Urine Bilirubin Negative, Urine Urobilinogen Normal, Ur Leukocyte Esterase Negative, Urine RBC 0-5 SEEN, Urine WBC 0-5 SEEN, Ur Squamous Epith Cells 0-5 SEEN, Urine Bacteria 1+, Urine Mucus 0 SEEN 12/24/23 11:24: Acetone Level MODERATE H 12/24/23 12:34: POC Glucose 228 H 12/24/23 13:30: Sodium Cancelled, Potassium Cancelled, Chloride Cancelled, Carbon Dioxide Cancelled, Anion Gap Cancelled, BUN Cancelled, Creatinine Cancelled, Estim Creat Clear Calc Cancelled, Est GFR (MDRD) Af Amer Cancelled, Est GFR (MDRD) Non-Af Cancelled, BUN/Creatinine Ratio Cancelled, Glucose Cancelled, Calcium Cancelled 12/24/23 13:34: POC Glucose 168 H 12/24/23 14:45: Sodium 132 L, Potassium 3.2 L, Chloride 109 H, Carbon Dioxide 5. 0 L*, Anion Gap 18 H, BUN 27 H, Creatinine 0.83, Estim Creat Clear Calc 66.89, Est GFR (MDRD) Af Amer 91, Est GFR (MDRD) Non-Af 75, BUN/Creatinine Ratio 32.7 H , Glucose 106, Calcium 8.0 L 12/24/23 14:46: POC Glucose 101 12/24/23 15:00: Sodium Cancelled, Potassium Cancelled, Chloride Cancelled, Carbon Dioxide Cancelled, Anion Gap Cancelled, BUN Cancelled, Creatinine Cancelled, Estim Creat Clear Calc Cancelled, Est GFR (MDRD) Af Amer Cancelled, Est GFR (MDRD) Non-Af Cancelled, BUN/Creatinine Ratio Cancelled, Glucose Cancelled, Hemoglobin A1c 7.0 H, Calcium Cancelled 12/24/23 15:37: POC Glucose 94 12/24/23 16:45: POC Glucose 90 12/24/23 17:42: POC Glucose 92 12/24/23 19:16: POC Glucose 96 12/24/23 19:30: Sodium 133 L, Potassium 3.0 L, Chloride 112 H, Carbon Dioxide 10.0 L, Anion Gap 11, BUN 22 H, Creatinine 0.66, Estim Creat Clear Calc 84.12, Est GFR (MDRD) Af Amer 117, Est GFR (MDRD) Non-Af 97, BUN/Creatinine Ratio 33.1 H, Glucose 116 H, Calcium 7.7 L 12/24/23 20:12: POC Glucose 105 12/24/23 21:11: POC Glucose 105 12/24/23 22:18: POC Glucose 114 H 12/24/23 23:10: Sodium 134 L, Potassium 2.6 L*, Chloride 112 H, Carbon Dioxide 12.0 L, Anion Gap 10, BUN 18, Creatinine 0.67, Estim Creat Clear Calc 82.86, Est GFR (MDRD) Af Amer 116, Est GFR (MDRD) Non-Af 95, BUN/Creatinine Ratio 26.8 H, Glucose 107 H, Calcium 7.7 L, POC Glucose 112 H 12/25/23 00:21: POC Glucose 113 H 12/25/23 01:13: POC Glucose 104 12/25/23 02:13: POC Glucose 107 H 12/25/23 03:15: WBC 6.1, RBC 3.86 L, Hgb 12.2, Hct 34.2 L, MCV 88.6 D, MCH 31.6, MCHC 35.7, RDW Std Deviation 40.0, RDW Coeff of Amie 12.4, Plt Count 159, MPV 9.5, Immature Gran % (Auto) 0.200, Neut % (Auto) 70.4 H, Lymph % (Auto) 22.1, [place] % (Auto) 7.1, Eos % (Auto) 0.0, Baso % (Auto) 0.2, Absolute Neuts (auto) 4.3, Absolute Lymphs (auto) 1.34, Nucleated RBC % 0, Sodium 135 L, Potassium 2.8 L, Chloride 114 H, Carbon Dioxide 14.0 L, Anion Gap 7, BUN 14, Creatinine 0.60, Estim Creat Clear Calc 92.53, Est GFR (MDRD) Af Amer 131, Est GFR (MDRD) Non-Af 109, BUN/Creatinine Ratio 23.3 H, Glucose 102, Calcium 8.0 L, Total Bilirubin 0.40, AST 14 L, ALT 12 L, Alkaline Phosphatase 65, Total Protein 5.9 L, Albumin 2.7 L, Globulin 3.2, Albumin/Globulin Ratio 0.8 L 12/25/23 03:16: POC Glucose 101 12/25/23 04:13: POC Glucose 101 12/25/23 05:20: POC Glucose 88 12/25/23 06:16: POC Glucose 71 L 12/25/23 07:13: POC Glucose 105 12/25/23 07:15: Sodium 138, Potassium 2.8 L, Chloride 110 H, Carbon Dioxide 15.0 L, Anion Gap 13, BUN 11, Creatinine 0.51 L, Estim Creat Clear Calc 108.75, Est GFR (MDRD) Af Amer 160, Est GFR (MDRD) Non-Af 132, BUN/Creatinine Ratio 21.7 H, Glucose 117 H, Calcium 8.2 L 12/25/23 08:03: POC Glucose 97 Micro: Microbiology 12/24/23 09:45 Mucosa - Nose SARS-CoV-2, Influenza & RSV (PCR) - Final ABG Data ABG results: ABG 12/24/23 11:43 Specimen Type RUDY Sample Site Not entered O2 % 21.0 VBG pH 6.94 L* VBG pO2 52 H VBG HCO3 4 L VBG Total CO2 < 5 L VBG O2 Sat (Calc) 65 VBG Base Excess -29 L POC Mix VBG pCO2 Pt Tmp 16.2 L* O2 Delivery Device Not entered Crit Call To/Read Back Yes Radiography Diagnostic Testing: Radiology Impression Chest X-Ray 12/24/23 09:34 IMPRESSION: No acute abnormality is seen. Electronically Signed: Delfin Mathew MD at 9:45 EDT , Chest CTA 12/24/23 10:27 IMPRESSION: Nonocclusive filling defects in branches of both the right and left lower lobe pulmonary artery in keeping with pulmonary emboli. Electronically Signed: Delfin Mathew MD at 11:57 EDT , Physical Exam Narrative GENERAL: cooperative but frail looking HEENT: Atraumatic; normocephalic EYES; Anicteric, Normal Conjunctiva NECK; supple, normal thyroid, RESPIRATORY: Diminished to auscultation CARDIOVASCULAR: Regular S1 S2, GI: soft, normoactive bowel sounds, : No Renal angle tenderness; EXTREMITIES: No edema, no clubbing, MUSCULOSKELETAL: no muscle wasting NEURO: Awake; no lateralizing signs. SKIN: No Rash PSYCH; Flat affect Assessment & Plan Assessment/Plan (1) Acute hyponatremia: (2) Pulmonary emboli: QUALIFIERS: Pulmonary embolism type: multiple subsegmental (without acute cor pulmonale) Qualified Code(s): I26.94 - Multiple subsegmental pulmonary emboli without acute cor pulmonale (3) Diabetic ketoacidosis: QUALIFIERS: Diabetes mellitus type: type 2 Diabetes mellitus complication detail: without coma Qualified Code(s): E11.10 - Type 2 diabetes m ellitus with ketoacidosis without coma PLAN: Plan Patient is a 58-year-old lady presented with progressive shortness of breath diagnosed with diabetic ketoacidosis as well as bilateral pulmonary embolism admitted to the intensive care unit for further management 1. Diabetic ketoacidosis ? Admitted to the intensive care unit management initiated with IV fluid resuscitation, IV insulin, BMP every 4 monitoring of electrolyte and correction of electrolyte abnormalities ? 12/25/2023 DKA resolved. Patient insulin drip discontinued placed on Accu-Cheks before meals and at bedtime as well as 1800 ADA diet 2. Severe acidosis ? Secondary to DKA patient did receive bicarb in the emergency department. Do expect correction with treatment of her underlying DKA ? 12/25/2023 corrected with treatment of her DKA as well as with bicarb drip 3. Severe hyponatremia ? Secondary to DKA sodium levels being monitored with every 4 BMP 5. Mild hyperkalemia ? Secondary to DKA do expect improvement with treatment of the DKA 5. Acute bilateral pulmonary embolism ? Unprovoked patient was started on apixaban from the emergency department did continue. Echo ordered for RV function assessment. ? 12/25/2023 CTA demonstrated Nonocclusive filling defects in branches of both the right and left lower lobe pulmonary artery in keeping with pulmonary emboli.. Patient is scheduled to undergo subsequent evaluation with a 2D echo 6. Hypokalemia ? Following correction of DKA being corrected per protocol with subsequent monitoring of electrolytes ordered 7. Leukocytosis ? Most likely reactive no evidence of active infection for now ? 12/25/2019 patient has persistent cough ordered chest x-ray as well as viral respiratory panel 8. Psoriasis ? Patient remains on remission. Patient is on deucravacitinib Time spent in the patient's overall evaluation,decision-making process, review of diagnostic data, adjustment of management, discussion with other providers, nursing nursing and ancillary staff involved in patient's care documentation, 52 Minutes Charges/Coding Visit Charges Inpatient E&M: 42305 [facility] Hosp L3
--- NOTE | 2023-12-25 09:05 | RAD_ITS ---
STUDY: X-RAY CHEST REASON FOR EXAM: Female, 58 years old. Pneumonia-486 TECHNIQUE: PA and lateral views of the chest. COMPARISON: Comparison is made with prior study dated December 24, 2023. FINDINGS: EKG electrodes are seen. Since prior study, there is increasing atelectasis and/or infiltrate at the left lung base. Mild increased markings at the right lung base. Poor inspiration. Follow-up recommended. There is no demonstrated pleural abnormality. Normal size heart. Normal mediastinum and ruthy. Normal visualized pulmonary arteries. Normal visualized aortic arch and descending thoracic aorta. There are diffuse degenerative changes of the visualized thoracic spine. Findings suggestive of a calcific tendinitis of the right shoulder. There is no demonstrated abnormality of the visualized soft tissue structures of the upper abdomen. RAD/Chest PA and Lateral IMPRESSION: Limited inspiratory effort with increased markings at both lung bases slightly worse on the left side suggestive of either bibasilar atelectasis and/or early infiltrates. Electronically Signed: Delfin Mathew MD at 14:10 EDT ,
[2023-12-25] MEDS: Potassium Chloride Oral Tablet 20 MEQ 40 MEQ PO (09:39)
--- NOTE | 2023-12-25 11:19 | CASEMGMT ---
COURTNEY COOPER Assessment Face to Face with patient for initial transition planning/care coordination assessment. COURTNEY COOPER introduced self and role at [facility], pt voices understanding. Pt is A&Ox4 and is resting comfortably in the chair and is calm. Care providers, pharmacy, and demographics verified. Admitting dx: DKA, DOUG PE'S LACE Strata: 1 PCP: Rajat Arias Specialists: Dr. Callejas (Dermatology). Pt denies seeing an Trainmaster and denies wanting list of specialized providers at this time Preferred Pharmacy: [facility] Insurance: [employer] [facility] Prescription Benefit: Yes LNOK: José Amaya (H) Living Arrangements: Pt lives with her in a 2 story home with a BM with HR throughout and 3 steps to enter ADLs/IADLs: Ind Transportation: self, DME: Pt has a working BGM and enough supplies to check her BS. Pt denies issues with this. Pulse Ox. Pt denies all other DME uses or needs. Pt is currently 98% on RA. HHC/SNF: Denies history or needs Pt?s goal: Home no needs Plan: Pt wishes to return home once medically ready and denies the need for additional therapy once home. CM to follow for safe DC from [facility]. Lorie Amaya RN, CM
[2023-12-25] MEDS: Insulin Lispro 100 UNIT/ML INSULN.PEN SC ×3 (11:42→21:29)
[2023-12-25 12:01] LABS: Bedside Glucose 187 mg/dL (74-106)
[2023-12-25] MEDS: Cefdinir 300 MG Capsule PO ×2 (13:24→21:26)
--- NOTE | 2023-12-25 15:35 | CHAPLAIN ---
Type of Pastoral Visit ___ Initial Visit ___ Follow-up Visit ___ On-call Visit ___ General Patient Visit ___ Spiritual Assessment ___ Family Conference ___ Bereavement ___ Rapid Response ___ Code Blue ___ Other (describe below) Pastoral Care Referral From ___ Patient ___ Family ___ Nurse ___ Physician ___ Aboriginal Ceremonial Celebrant ___ Side Door Man ___ Other (describe below) Sacrament/Intervention ___ Active listening ___ Anointing ___ Taoism ___ Bereavement ___ Communion ___ Radha exploration ___ ___ Life review ___ Prayer ___ Reconciliation ___ Sacrament of Sick ___ Supportive presence ___ Wedding ___ Other (describe below) Pastoral Comments patient was not in her room
[2023-12-25] MEDS: guaiFENesin Dm 10 ML UDC PO ×2 (16:00→22:19)
[2023-12-25 17:22] LABS: Anion Gap 7 (5-15); BUN 6 mg/dL (7-18); BUN/Creat Ratio 11.5 RATIO (10-20); Calcium,Total 8.8 mg/dL (8.5-10.1); Chloride 114 mmol/L (98-107); Creatinine, Serum 0.52 mg/dL (0.55-1.02); EST Glomerular Filtration Rate 128 mL/min (>60); Est Glom Filt Rate - Afr Amer 155 mL/min (>60); Estimated Creatinine Clearance 106.66 ml/min; Glucose 200 mg/dL (74-106); Magnesium 2.3 mg/dL (1.6-2.6); Potassium 3.2 mmol/L (3.5-5.1); Sodium Level 138 mmol/L (136-145)
[2023-12-25 17:28] LABS: Bedside Glucose 185 mg/dL (74-106)
[2023-12-25] MEDS: Potassium Chloride Oral Tablet 20 MEQ PO (17:32)
[2023-12-25 17:56] LABS: Phosphorus 0.1 mg/dL (2.5-4.9)
[2023-12-25] MEDS: Na Biphos/Potassium Phosphate PACKET 1 PACKET PO ×2 (18:41→21:26)
[2023-12-25] MEDS: 0.9% Saline Lock 10 ML Syringe IV (21:26)
[2023-12-25] MEDS: MELATONIN 3 MG TABLET PO (22:19)
[2023-12-25 22:31] LABS: Bedside Glucose 171 mg/dL (74-106)
[2023-12-26 03:32] VITALS: BP 119/72; PULSE 88; RESP 17; TEMP 36.2; O2SAT 99
[2023-12-26 06:00] VITALS: BMI 27.9
[2023-12-26] MEDS: Na Biphos/Potassium Phosphate PACKET 1 PACKET PO (06:30)
[2023-12-26] MEDS: guaiFENesin Dm 10 ML UDC PO (06:31)
[2023-12-26 06:53] LABS: Bedside Glucose 136 mg/dL (74-106)
[2023-12-26 07:12] VITALS: O2SAT 97
[2023-12-26 07:13] LABS: Absolute Lymphocyte Count 2.22 X10^3/uL (0.83-4.51); Basophil# 0.03 X10^3/uL; Basophil% 0.5 % (0-1); Eosinophil# 0.04 X10^3/uL; Eosinophils% 0.7 % (0-5); Hematocrit 35.8 % (37-47); Hemoglobin 12.5 g/dL (12.0-15.0); Lymphocyte # 2.22 X10^3/ul (0.83-4.51); Lymphocyte % 38.4 % (19-41); Mean Corp Hgb Conc 34.9 g/dL (32-36); Mean Corpuscular Hgb 31.4 pg (27.0-32.0); Mean Corpuscular Volume 89.9 fL (81-99); Mean Platelet Vol. 9.5 fl (6.2-12.0); Monocyte# 0.42 X10^3/uL; Monocyte% 7.3 % (0-10); NRBC Flagged by Analyzer 0 % (0-5); Neutrophil # 3.04 X10^3/uL (2.7-7.7); Neutrophil % 52.6 % (47-70); Platelet Count 168 K/mm3 (150-450); RBC Distribution Width CV 12.8 % (11.6-14.6); RBC Distribution Width SD 42.2 fl (35.1-43.9); Red Blood Count 3.98 M/mm3 (4.2-5.4); White Blood Count 5.8 K/mm3 (4.4-11.0)
--- NOTE | 2023-12-26 07:26 | PN.HOSP_ITS ---
Reason for Visit Reason for Visit: Diagnoses Type 2 diabetes mellitus with ketoacidosis without coma (12/24/23) Hypo-osmolality and hyponatremia (12/24/23) Multiple subsegmental pulmonary emboli without acute cor pulmonale (12/24/23) Subjective Subjective Patient seen still has persistent cough Objective Data Objective Data Vital Signs: Vital Signs Temp Pulse Resp BP Pulse Ox O2 Del Method 97.2 F L 88 17 119/72 99 Room Air 12/26/23 03:32 12/26/23 03:32 12/26/23 03:32 12/26/23 03:32 12/26/23 03:32 12/26/23 03:35 Oxygen Delivery Method Room Air Weight: 69.3 kg Body Mass Index (BMI) 27.9 Intake & Output: Intake and Output for Last 24 Hours 12/24/23 12/25/23 12/26/23 23:59 23:59 23:59 Intake Total 3379.93 / 3429.93 5793.58 / 5793.58 Balance 3379.93 / 3429.93 5793.58 / 5793.58 Lab / Micro Data 12/26/23 06:30 12/26/23 06:30 Labs: Laboratory Results - last 24 hr 12/25/23 07:13: POC Glucose 105 12/25/23 07:15: Sodium 138, Potassium 2.8 L, Chloride 110 H, Carbon Dioxide 15.0 L, Anion Gap 13, BUN 11, Creatinine 0.51 L, Estim Creat Clear Calc 108.75, Est GFR (MDRD) Af Amer 160, Est GFR (MDRD) Non-Af 132, BUN/Creatinine Ratio 21.7 H, Glucose 117 H, Calcium 8.2 L 12/25/23 08:03: POC Glucose 97 12/25/23 11:39: POC Glucose 187 H 12/25/23 16:02: POC Glucose 185 H 12/25/23 16:50: Sodium 138, Potassium 3.2 L, Chloride 114 H, Carbon Dioxide 17.0 L, Anion Gap 7, BUN 6 L, Creatinine 0.52 L, Estim Creat Clear Calc 106.66, Est GFR (MDRD) Af Amer 155, Est GFR (MDRD) Non-Af 128, BUN/Creatinine Ratio 11.5, Glucose 200 H, Calcium 8.8, Phosphorus 0.1 L*, Magnesium 2.3 12/25/23 21:28: POC Glucose 171 H 12/26/23 06:29: POC Glucose 136 H 12/26/23 06:30: WBC 5.8, RBC 3.98 L, Hgb 12.5, Hct 35.8 L, MCV 89.9, MCH 31.4, MCHC 34.9, RDW Std Deviation 42.2, RDW Coeff of Amie 12.8, Plt Count 168, MPV 9.5, Immature Gran % (Auto) 0.500, Neut % (Auto) 52.6, Lymph % (Auto) 38.4, [place] % (Auto) 7.3, Eos % (Auto) 0.7, Baso % (Auto) 0.5, Absolute Neuts (auto) 3.0, Absolute Lymphs (auto) 2.22, Nucleated RBC % 0 Micro: Microbiology 12/25/23 09:16 Mucosa - Nasopharyngeal Coronavirus COVID-19 PCR - Final 12/25/23 09:16 Mucosa - Nasopharyngeal Respiratory Panel (PCR) - Final Human [place] 12/25/23 09:20 Urine, Random Legionella Antigen - Final 12/25/23 09:20 Urine, Random Streptococcus pneumoniae Antigen (M - Final 12/25/23 09:20 Mucosa - Throat Streptococcus pyogenes (PCR) - Final Streptococcus Group A 12/24/23 09:45 Mucosa - Nose SARS-CoV-2, Influenza & RSV (PCR) - Final Radiography Diagnostic Testing: Radiology Impression Chest X-Ray 12/25/23 09:05 IMPRESSION: Limited inspiratory effort with increased markings at both lung bases slightly worse on the left side suggestive of either bibasilar atelectasis and/or early infiltrates. Electronically Signed: Delfin Mathew MD at 14:10 EDT , Physical Exam Narrative GENERAL: cooperative but frail looking HEENT: Atraumatic; normocephalic EYES; Anicteric, Normal Conjunctiva NECK; supple, normal thyroid, RESPIRATORY: Diminished to auscultation CARDIOVASCULAR: Regular S1 S2, GI: soft, normoactive bowel sounds, : No Renal angle tenderness; EXTREMITIES: No edema, no clubbing, MUSCULOSKELETAL: no muscle wasting NEURO: Awake; no lateralizing signs. SKIN: No Rash PSYCH; Flat affect Assessment & Plan Assessment/Plan (1) Acute hyponatremia: (2) Pulmonary emboli: QUALIFIERS: Pulmonary embolism type: multiple subsegmental (without acute cor pulmonale) Qualified Code(s): I26.94 - Multiple subsegmental pulmonary emboli without acute cor pulmonale (3) Diabetic ketoacidosis: QUALIFIERS: Diabetes mellitus complication detail: without coma Diabetes mellitus type: type 2 Qualified Code(s): E11.10 - Type 2 diabetes me llitus with ketoacidosis without coma PLAN: Plan Patient is a 58-year-old lady presented with progressive shortness of breath diagnosed with diabetic ketoacidosis as well as bilateral pulmonary embolism admitted to the intensive care unit for further management 1. Diabetic ketoacidosis ? Admitted to the intensive care unit management initiated with IV fluid resuscitation, IV insulin, BMP every 4 monitoring of electrolyte and correction of electrolyte abnormalities ? 12/25/2023 DKA resolved. Patient insulin drip discontinued placed on Accu-Cheks before meals and at bedtime as well as 1800 ADA diet 2. Severe acidosis ? Secondary to DKA patient did receive bicarb in the emergency department. Do expect correction with treatment of her underlying DKA ? 12/25/2023 corrected with treatment of her DKA as well as with bicarb drip 3. Severe hyponatremia ? Secondary to DKA sodium levels being monitored with every 4 BMP 5. Mild hyperkalemia ? Secondary to DKA do expect improvement with treatment of the DKA 5. Acute bilateral pulmonary embolism ? Unprovoked patient was started on apixaban from the emergency department did continue. Echo ordered for RV function assessment. ? 12/25/2023 CTA demonstrated Nonocclusive filling defects in branches of both the right and left lower lobe pulmonary artery in keeping with pulmonary emboli.. Patient is scheduled to undergo subsequent evaluation with a 2D echo 6. Hypokalemia ? Following correction of DKA being corrected per protocol with subsequent monitoring of electrolytes ordered 7. Leukocytosis ? Most likely reactive no evidence of active infection for now ? 12/25/2019 patient has persistent cough ordered chest x-ray as well as viral respiratory panel 8. Psoriasis ? Patient remains on remission. Patient is on deucravacitinib 9. Persistent cough ? Subsequent evaluation demonstrated strep group C as well as her respiratory panel being positive for human metapneumovirus. Patient started on cefdinir in addition to symptom management 10. Severe hypophosphatemia ? Patient placed on Neutra-Phos K Time spent in the patient's overall evaluation,decision-making process, review of diagnostic data, adjustment of management, discussion with other providers, nursing nursing and ancillary staff involved in patient's care documentation, 52 Minutes Charges/Coding Visit Charges Inpatient E&M: [id number] [facility] Hosp L3
[2023-12-26 08:33] LABS: ALB/GLOB Ratio 0.8 RATIO (0.9-2.4); AST(SGOT) 16 U/L (15-37); Alanine Aminotransfer ALT/SGPT 15 U/L (13-56); Albumin, Serum 2.9 g/dL (3.2-5.0); Alkaline Phosphatase 73 U/L (45-117); Anion Gap 10 (5-15); BUN 6 mg/dL (7-18); BUN/Creat Ratio 12.7 RATIO (10-20); Calcium,Total 9.2 mg/dL (8.5-10.1); Chloride 110 mmol/L (98-107); Creatinine, Serum 0.47 mg/dL (0.55-1.02); EST Glomerular Filtration Rate 143 mL/min (>60); Est Glom Filt Rate - Afr Amer 173 mL/min (>60); Estimated Creatinine Clearance 119.01 ml/min; Globulin 3.7 g/dL (2.2-4.2); Glucose 148 mg/dL (74-106); Potassium 3.6 mmol/L (3.5-5.1); Protein, Total 6.6 g/dL (6.4-8.2); Sodium Level 140 mmol/L (136-145)
[2023-12-26 10:20] VITALS: BP 133/64; PULSE 96; RESP 16; TEMP 36.9; O2SAT 97
[2023-12-26] MEDS: Potassium Chloride Oral Tablet 20 MEQ PO (10:26)
[2023-12-26] MEDS: Cefdinir 300 MG Capsule PO (10:27)
[2023-12-26] MEDS: APIXABAN 5 MG TABLET 10 MG PO (10:27)
[2023-12-26] MEDS: Insulin Lispro 100 UNIT/ML INSULN.PEN SC (11:47)
[2023-12-26 12:09] LABS: Bedside Glucose 174 mg/dL (74-106)
[2023-12-26 13:02] VITALS: O2SAT 97; O2SAT 98
--- NOTE | 2023-12-26 13:15 | DS.PCM_ITS ---
Providers Date of Admission: 12/24/23 Date of Discharge: 12/26/23 Primary Care Physician: Dr. Rajat Arias MD Reason For Visit: DKA, DOUG PE'S Diagnosis Discharge Diagnosis (1) Acute hyponatremia: Status: Acute Code(s): E87.1 - Hypo-osmolality and hyponatremia (2) Pulmonary emboli: Status: Acute Code(s): I26.99 - Other pulmonary embolism without acute cor pulmonale Qualifiers: Pulmonary embolism type: multiple subsegmental (without acute cor pulmonale) Qualified Code(s): I26.94 - Multiple subsegmental pulmonary emboli without acute cor pulmonale (3) Diabetic ketoacidosis: Status: Acute Code(s): E11.10 - Type 2 diabetes mellitus with ketoacidosis without coma Qualifiers: Diabetes mellitus type: type 2 Diabetes mellitus complication detail: without coma Qualified Code(s): E11.10 - Type 2 diabetes mellitus with ketoacidosis without coma Plan Patient is a 58-year-old lady presented with progressive shortness of breath diagnosed with diabetic ketoacidosis as well as bilateral pulmonary embolism admitted to the intensive care unit for further management 1. Diabetic ketoacidosis ? Admitted to the intensive care unit management initiated with IV fluid resuscitation, IV insulin, BMP every 4 monitoring of electrolyte and correction of electrolyte abnormalities ? 12/25/2023 DKA resolved. Patient insulin drip discontinued placed on Accu-Cheks before meals and at bedtime as well as 1800 ADA diet ? Jardiance was discontinued on discharge given patient's presentation? ketoacidosis 2. Severe acidosis ? Secondary to DKA patient did receive bicarb in the emergency department. Do expect correction with treatment of her underlying DKA ? 12/25/2023 corrected with treatment of her DKA as well as with bicarb drip 3. Severe hyponatremia ? Secondary to DKA sodium levels being monitored with every 4 BMP 5. Mild hyperkalemia ? Secondary to DKA do expect improvement with treatment of the DKA 5. Acute bilateral pulmonary embolism ? Unprovoked patient was started on apixaban from the emergency department did continue. Echo ordered for RV function assessment. ? 12/25/2023 CTA demonstrated Nonocclusive filling defects in branches of both the right and left lower lobe pulmonary artery in keeping with pulmonary emboli.. Patient is scheduled to undergo subsequent evaluation with a 2D echo 6. Hypokalemia ? Following correction of DKA being corrected per protocol with subsequent monitoring of electrolytes ordered 7. Leukocytosis ? Most likely reactive no evidence of active infection for now ? 12/25/2019 patient has persistent cough ordered chest x-ray as well as viral respiratory panel 8. Psoriasis ? Patient remains on remission. Patient is on deucravacitinib 9. Persistent cough ? Subsequent evaluation demonstrated strep group C as well as her respiratory panel being positive for human metapneumovirus. Patient started on cefdinir in addition to symptom management 10. Severe hypophosphatemia ? Patient placed on Neutra-Phos K Medications at Discharge Home Medications blood sugar diagnostic (FreeStyle Lite Strips) 12/24/23 deucravacitinib 6 mg tablet (Sotyktu) 6 mg PO DAILY 12/24/23 metformin 500 mg tablet 1,000 mg PO BID 12/24/23 acetaminophen 325 mg tablet 650 mg (2 x 325 mg) PO Q6H PRN PRN Pain 1-10 Or Fever >100.7 #0 tabs 12/26/23 apixaban 5 mg tablet (Eliquis) 5 mg PO BID #130 tabs 12/26/23 benzocaine 6 mg-menthol 10 mg lozenges (Chloraseptic Sore Throat) 2 annemarie mucous membrane Q2H PRN PRN SORE THROAT #30 ea 12/26/23 cefdinir 300 mg capsule 300 mg PO Q12 #12 caps 12/26/23 dextromethorphan-guaifenesin 10 mg-100 mg/5 mL oral syrup 10 ml PO Q6H PRN PRN COUGH/CONGESTION #200 mL 12/26/23 potassium chloride 20 mEq tablet,extended release(part/cryst) 20 meq PO BIDCM #20 tabs 12/26/23 potassium, sodium phosphates 280 mg-160 mg-250 mg oral powder packet 1 packet PO TID #30 ea 12/26/23 Hospital Course Summary of Care Provided Minutes Spent on Discharge: 32 Physical Exam Narrative GENERAL: cooperative but frail looking HEENT: Atraumatic; normocephalic EYES; Anicteric, Normal Conjunctiva NECK; supple, normal thyroid, RESPIRATORY: Diminished to auscultation CARDIOVASCULAR: Regular S1 S2, GI: soft, normoactive bowel sounds, : No Renal angle tenderness; EXTREMITIES: No edema, no clubbing, MUSCULOSKELETAL: no muscle wasting NEURO: Awake; no lateralizing signs. SKIN: No Rash PSYCH; Flat affect Weight / BMI Weight Weight: 69.3 kg Body Mass Index (BMI) 27.9 ABG / Lab / Microbiology Data 12/26/23 06:30 12/26/23 06:30 Laboratory: Laboratory Results - last 24 hr 12/25/23 16:02: POC Glucose 185 H 12/25/23 16:50: Sodium 138, Potassium 3.2 L, Chloride 114 H, Carbon Dioxide 17.0 L, Anion Gap 7, BUN 6 L, Creatinine 0.52 L, Estim Creat Clear Calc 106.66, Est GFR (MDRD) Af Amer 155, Est GFR (MDRD) Non-Af 128, BUN/Creatinine Ratio 11.5, Glucose 200 H, Calcium 8.8, Phosphorus 0.1 L*, Magnesium 2.3 12/25/23 21:28: POC Glucose 171 H 12/26/23 06:29: POC Glucose 136 H 12/26/23 06:30: WBC 5.8, RBC 3.98 L, Hgb 12.5, Hct 35.8 L, MCV 89.9, MCH 31.4, MCHC 34.9, RDW Std Deviation 42.2, RDW Coeff of Amie 12.8, Plt Count 168, MPV 9.5, Immature Gran % (Auto) 0.500, Neut % (Auto) 52.6, Lymph % (Auto) 38.4, Johnston % (Auto) 7.3, Eos % (Auto) 0.7, Baso % (Auto) 0.5, Absolute Neuts (auto) 3.0, Absolute Lymphs (auto) 2.22, Nucleated RBC % 0, Sodium 140, Potassium 3.6, Chloride 110 H, Carbon Dioxide 20.0 L, Anion Gap 10, BUN 6 L, Creatinine 0.47 L, Estim Creat Clear Calc 119.01, Est GFR (MDRD) Af Amer 173, Est GFR (MDRD) Non-Af 143, BUN/Creatinine Ratio 12.7, Glucose 148 H, Calcium 9.2, Total Bilirubin 0.70, AST 16, ALT 15, Alkaline Phosphatase 73, Total Protein 6.6, Albumin 2.9 L, Globulin 3.7, Albumin/Globulin Ratio 0.8 L 12/26/23 11:45: POC Glucose 174 H Microbiology: Microbiology 12/25/23 09:16 Mucosa - Nasopharyngeal Coronavirus COVID-19 PCR - Final 12/25/23 09:16 Mucosa - Nasopharyngeal Respiratory Panel (PCR) - Final Human Roxana 12/25/23 09:20 Urine, Random Legionella Antigen - Final 12/25/23 09:20 Urine, Random Streptococcus pneumoniae Antigen (M - Final 12/25/23 09:20 Mucosa - Throat Streptococcus pyogenes (PCR) - Final Streptococcus Group A 12/24/23 09:45 Mucosa - Nose SARS-CoV-2, Influenza & RSV (PCR) - Final Radiography Diagnostic Testing: Radiology Impression Chest X-Ray 12/25/23 09:05 IMPRESSION: Limited inspiratory effort with increased markings at both lung bases slightly worse on the left side suggestive of either bibasilar atelectasis and/or early infiltrates. Electronically Signed: Delfin Mathew MD at 14:10 EDT , D/C Instructions Discharge Diet: No restrictions Discharge Activity: Return to Normal Activity Call your doctor if you observe: Fever of 101 or Higher, Shortness of breath, Fainting spells and Chest pain Meaningful Use Info Meaningful Use Meaningful Use Diagnoses (Choose all that apply): None applicable Ischemic Stroke Statin Dosing Therapy Reference: STATIN DOSE THERAPY REFERENCE: * Patients > 75 years receive moderate or high dose statin therapy. * Patients 75 years or YOUNGER should receive HIGH intensity statin dose unless contraindicated. You will be required to document reason for non-treatment if statin daily dose does not meet guidelines. HIGH DOSE STATIN THERAPY DAILY Atorvastatin > than or = to 40 mg Rosuvastatin > than or = to 20 mg Amlodipine + Atorvastatin > than or = to 2.5/40 mg Ezetimibe + Simvastatin 10/80 mg Simvastatin 80mg Discharge Plan Admission Admit Date/Time: 12/24/23 12:29 Attending Provider: Kel Torres Primary Care Provider: Rajat Arias Discharge Orders/Prescriptions Prescriptions: New acetaminophen 325 mg Tablet 650 mg PO Q6H PRN PRN (Reason: Pain 1-10 Or Fever >100.7) Qty: 0 0RF dextromethorphan-guaifenesin 10-100 mg/5 mL Syrup 10 ml PO Q6H PRN PRN (Reason: COUGH/CONGESTION) Qty: 200 0RF potassium chloride 20 mEq Tablet,Er Particles/Crystals 20 meq PO BIDCM Qty: 20 0RF cefdinir 300 mg Capsule 300 mg PO Q12 Qty: 12 0RF Chloraseptic Sore Throat 6-10 mg Lozenge 2 annemarie mucous membrane Q2H PRN PRN (Reason: SORE THROAT) Qty: 30 0RF potassium, sodium phosphates 280-160-250 mg Powder In Packet 1 packet PO TID Qty: 30 0RF Eliquis 5 mg Tablet 5 mg PO BID Qty: 130 0RF Taper: Apixaban VTE Treatment 10 mg TWICE A DAY for 7 Days and 0 Hour 5 mg TWICE A DAY for 180 Days and 0 Hour Rx Instructions: 10 mg p.o. twice daily for 5 days then 5 mg twice daily Continued metformin 500 mg tablet 1,000 mg PO BID (DME) FreeStyle Lite Strips Strip 1 strip MISCELLANEOUS 4X/DAY Sotyktu 6 mg tablet 6 mg PO DAILY Discontinued Jardiance 25 mg tablet 25 mg PO DAILY Referrals / Follow Up: Rajat Arias MD [Primary Care Provider] - Disposition Disposition (needs filled in before D/C Order can be placed): Home, Self Care Charges/Coding Visit Charges Inpatient E&M: 38281 Disch Hosp >30min
--- NOTE | 2023-12-26 13:23 | CASEMGMT ---
COURTNEY COOPER NOTE: Home O2 testing has been completed. Pt does not qualify for home O2. Pt discharging home on Eliquis and rx has been sent to [facility] retail pharmacy. Call placed to the pharmacy. 30-day savings card has been applied. Per pharmacy, pt's insurance does require prior auth for refills. COURTNEY COOPER to room. Introduced self and role. Pt made aware of prior auth required for Eliquis and she states she will f/u with her PCP, Dr Arias, for this. She denies having other discharge/home-going needs or concerns. Lisa BSN RN CM
--- NOTE | 2023-12-26 14:10 | PHA.DC.MC.R ---
Pharmacy [facility] has performed discharge medication reconciliation and counseling for this patient. The patient's discharge medication list was reviewed for discrepancies and discrepancies were resolved. The patient was counseled on the following discharge medications and changes in medications for homegoing were reviewed. The Reason for Use, instructions for use, and potential side effects were reviewed for all new medications. The patient's questions regarding all of their medications were answered. 1. Apixaban 10 mg PO BID x 5 days, then 5 mg PO BID thereafter 2. Cefdinir 300 mg PO BID x 6 days 3. Acetaminophen 650 Q6H PRN pain 4. dextromethorphan-guaifenesin 10 mL PO Q6H PRN cough/congestion 5. Potassium chloride 20 mEq BID with meals x 10 days 6. Potassium, sodium, phosphates oral powder packet, 1 TIDCM x 10 days The patient was able to verbally demonstrate an understanding of their discharge medications. Medications at Discharge Home Medications blood sugar diagnostic (FreeStyle Lite Strips) 12/24/23 deucravacitinib 6 mg tablet (Sotyktu) 6 mg PO DAILY skin 12/24/23 metformin 500 mg tablet 1,000 mg PO BID blood sugar 12/24/23 acetaminophen 325 mg tablet 650 mg (2 x 325 mg) PO Q6H PRN PRN Pain 1-10 Or Fever >100.7 #0 tabs 12/26/23 apixaban 5 mg tablet (Eliquis) 5 mg PO BID #130 tabs 12/26/23 benzocaine 6 mg-menthol 10 mg lozenges (Chloraseptic Sore Throat) 2 annemarie mucous membrane Q2H PRN PRN SORE THROAT #30 ea 12/26/23 cefdinir 300 mg capsule 300 mg PO Q12 #12 caps 12/26/23 dextromethorphan-guaifenesin 10 mg-100 mg/5 mL oral syrup 10 ml PO Q6H PRN PRN COUGH/CONGESTION #200 mL 12/26/23 potassium chloride 20 mEq tablet,extended release(part/cryst) 20 meq PO BIDCM #20 tabs 12/26/23 potassium, sodium phosphates 280 mg-160 mg-250 mg oral powder packet 1 packet PO TID #30 ea 12/26/23
[2023-12-26 14:19] VITALS: BP 126/73; PULSE 93; RESP 16; TEMP 36.9; O2SAT 98
--- NOTE | 2023-12-26 14:54 | CHAPLAIN ---
Type of Pastoral Visit _x__ Initial Visit ___ Follow-up Visit ___ On-call Visit ___ General Patient Visit ___ Spiritual Assessment ___ Family Conference ___ Bereavement ___ Rapid Response ___ Code Blue ___ Other (describe below) Pastoral Care Referral From _x__ Patient ___ Family ___ Nurse ___ Physician ___ Safety Investigator/Cause Analyst ___ Applied Researcher ___ Other (describe below) Sacrament/Intervention _x__ Active listening ___ Anointing ___ Catholic ___ Bereavement ___ Communion _x__ Radha exploration ___ ___ Life review _x__ Prayer ___ Reconciliation ___ Sacrament of Sick ___ Supportive presence ___ Wedding ___ Other (describe below) Pastoral Comments patient is expecting to be discharged soon and spouse is with her; pt states she is doing better and now knows the warning signs; pt says many people are praying for her and that she has a supportive advent family; prayer welcomed now
== END 2023-12-26 14:36 | disposition home or self-care (01) | DRG 637 ==
LOC: ED 12:35 → ICU 13:32 → PCU 12-25 12:09
PROVIDERS: Admitting Provider Internal Medicine; Emergency Provider Emergency Medicine; PCP Family Medicine; Visit Provider Internal Medicine
DX: E11.10 Type 2 diabetes mellitus with ketoacidosis without coma (principal); I26.94 Multiple subsegmental thrombotic pulmonary emboli without acute cor pulmonale; E87.1 Hypo-osmolality and hyponatremia; E83.39 Other disorders of phosphorus metabolism; B95.0 Streptococcus, group A, as the cause of diseases classified elsewhere; R05.3 Chronic cough; B97.81 Human metapneumovirus as the cause of diseases classified elsewhere; Z79.84 Long term (current) use of oral hypoglycemic drugs
CPT/HCPCS: 36415; 36600; 71046; 71275; 80048; 80053; 81001; 82009; 82803; 82962; 83036; 83605; 83735; 83880; 84100; 84484; 85025; 85379; 85610; 85730; 87040; 87449; 87631; 87633; 87635; 87651; 93005; 94668; 94762; 97802; 99285; J7030; Q9967; A4216; J7799